=== PATIENT | male | born 1995 | race Caucasian/White ===

== ENCOUNTER 2017-05-20 14:05 | Emergency (ER) | payer OTHER ==
[~2017-05-20] VITALS: Ht 182.9 cm; Wt 79.4 kg
[~2017-05-20 14:05] MED LIST: AMOXICILLIN500 M1 PO; BISACODYL SUPP10 MG RECTAL; CITRATE OF MAG296 ML PO; IBUPROFEN 200200 M1 PO; IBUPROFEN 800800 M1 PO; KEFLEX500 MG PO; MEDROLDOSEPACK PO; MOBIC7.5 MG PO; NAPROSYN500 MG PO; NOHOMEMEDICATIONS; NORCO 5-325 TA1 EACH PO; PYRIDIUM100 M1 PO; SEROQUEL 100 M100 M1; SKELAXIN 800 M800 M1 PO
[2017-05-20 14:46] LABS: INFLUENZA A ANTIGEN None Detected (None Detect); INFLUENZA B ANTIGEN None Detected (None Detect)
[2017-05-20] MEDS ORDERED: ZPAK PO (14:51)
[2017-05-20 15:00] VITALS: BP 137/83
== END 2017-05-20 15:01 | disposition home or self-care (01) ==
LOC: M.ERS 14:05
PROVIDERS: Nurse Practitioner Family
DX: J98.8 Other specified respiratory disorders (principal); F17.200 Nicotine dependence, unspecified, uncomplicated; Z88.5 Allergy status to narcotic agent

== ENCOUNTER 2017-11-28 03:06 | Emergency (ER) | payer OTHER ==
[~2017-11-28] VITALS: Ht 180.3 cm; Wt 76.2 kg
[~2017-11-28 03:06] MED LIST changes: +ZPAK PO
[2017-11-28 03:13] VITALS: BP 136/77
[2017-11-28] MEDS ORDERED: PENICILLIN V P500 MG PO (03:38)
[2017-11-28] MEDS ORDERED: NORCO 5-325 TA1 EACH PO (03:38)
[2017-11-28] MEDS ORDERED: IBUPROFEN 800800 M1 PO (03:38)
== END 2017-11-28 03:53 | disposition home or self-care (01) ==
LOC: M.ERS 03:06
DX: K02.9 Dental caries, unspecified (principal); M54.30 Sciatica, unspecified side

== ENCOUNTER 2018-09-15 16:43 | Emergency (ER) | payer BC ==
[~2018-09-15] VITALS: Ht 180.3 cm; Wt 81.7 kg
[~2018-09-15 16:43] MED LIST changes: +PENICILLIN V P500 MG PO
[2018-09-15] MEDS ORDERED: BACTRIM DS TAB1 EACH PO (17:17)
[2018-09-15 18:04] VITALS: BP 134/76
== END 2018-09-15 18:05 | disposition home or self-care (01) ==
LOC: M.ERS 16:43
DX: L03.113 Cellulitis of right upper limb (principal); Z88.5 Allergy status to narcotic agent; Z88.8 Allergy status to other drugs, medicaments and biological substances; Z86.14 Personal history of Methicillin resistant Staphylococcus aureus infection

== ENCOUNTER 2019-04-06 12:56 | Emergency (ER) | payer BC ==
[~2019-04-06] VITALS: Ht 180.3 cm; Wt 72.6 kg
[~2019-04-06 12:56] MED LIST changes: +BACTRIM DS TAB1 EACH PO
[2019-04-06 13:03] VITALS: BP 126/68
[2019-04-06 13:38] LABS: URINE BILIRUBIN NEGATIVE (Negative); URINE BLOOD NEGATIVE (Negative); URINE CLARITY CLEAR; URINE COLOR YELLOW; URINE GLUCOSE-RANDOM NEGATIVE (Negative); URINE KETONES NEGATIVE (Negative); URINE LEUKOCYTES-REFLEX NEGATIVE (Negative); URINE NITRITE-REFLEX NEGATIVE (Negative); URINE PROTEIN NEGATIVE (Negative); URINE UROBILINOGEN 0.2 E.U./dl (0.2-1.0)
[2019-04-06] MEDS ORDERED: KEFLEX500 M1 PO (14:15)
[2019-04-06] MEDS ORDERED: BACTRIM DS TAB1 EACH PO (14:15)
== END 2019-04-06 14:48 | disposition home or self-care (01) ==
LOC: M.ERS 12:56
PROVIDERS: Emergency Medicine
DX: H60.12 Cellulitis of left external ear (principal); R30.0 Dysuria; Z88.5 Allergy status to narcotic agent

== ENCOUNTER 2020-11-19 20:20 | Emergency (ER) | payer BC ==
[~2020-11-19] VITALS: Ht 180.3 cm; Wt 68.5 kg
[~2020-11-19 20:20] MED LIST changes: +KEFLEX500 M1 PO
[2020-11-19 21:08] LABS: ABSOLUTE EOSINOPHILS 0.1 thou/uL (0.0-0.7); ABSOLUTE LYMPHOCYTES 1.5 thou/uL (0.8-5.3); ABSOLUTE NEUTROPHILS 5.1 thou/uL (1.6-8.1); BASOPHILS 0.4 %; EOSINOPHILS 1.1 %; HEMATOCRIT 40.2 % (42.0-52.0); HEMOGLOBIN 13.3 gm/dL (14.0-18.0); LYMPHOCYTES 19.2 %; MCH 29.9 pg (26.0-34.0); MCHC 33.2 g/dL (28.0-37.0); MCV 90.1 fL (80.0-100.0); MPV 7.8 fl. (7.2-11.1); NUCLEATED RBCS 0 /100WBC; PLATELET COUNT* 248 thou/uL (150-400); POLYS 66.3 %; RBC 4.47 mil/uL (4.50-6.00); RDW-CV 12.7 % (10.5-14.5); WBC 7.7 thou/uL (4.0-11.0)
[2020-11-19 21:11] LABS: CALCIUM 8.6 mg/dL (8.5-10.1); POTASSIUM 3.6 mmol/L (3.5-5.1)
[2020-11-19 21:22] LABS: ALBUMIN 4.3 g/dL (3.4-5.0); TOTAL BILIRUBIN 0.3 mg/dL (<0.1-1.0); TOTAL PROTEIN 7.2 g/dL (6.4-8.2)
[2020-11-19] MEDS ORDERED: APAP W/CODEINE1 TA2 PO (21:39)
[2020-11-19] MEDS ORDERED: ONDANSETRON HCL4 M2 PO (21:39)
[2020-11-19 21:48] VITALS: BP 116/68
== END 2020-11-19 21:49 | disposition home or self-care (01) ==
LOC: M.ERS 20:20
PROVIDERS: Physician Assistant
DX: R53.1 Weakness (principal); Z20.822 Contact with and (suspected) exposure to COVID-19; R11.0 Nausea; R05 Cough; R53.83 Other fatigue; Z88.5 Allergy status to narcotic agent